=== PATIENT | female | born 1945 | race Hispanic/Latino ===

== ENCOUNTER → 2018-12-06 | Day surgery (SDC) | payer MEDICARE, OTHER ==
[2018-11-14 11:12] LABS: BASOPHILS % 0.2 % (0.0-1.0); EOSINOPHILS # (AUTO) 0.1 (0.0-0.4); EOSINOPHILS % 1.6 % (0.0-6.0); HEMATOCRIT 36.9 % (34.2-44.1); HEMOGLOBIN 12.9 g/dL (12.0-16.0); LYMPHOCYTES % 31.4 % (18.0-39.1); MEAN CORPUSCULAR HEMOGLOBIN 31.1 pg (28-32); MEAN CORPUSCULAR VOLUME 88.9 fL (81-99); MONOCYTES # (AUTO) 0.5 (0.2-0.8); MONOCYTES % 7.1 % (4.4-11.3); NEUTROPHILS # (AUTO) 3.7 (2.1-6.9); NEUTROPHILS % 59.4 % (38.7-80.0); PLATELET COUNT 247 x10e3/uL (140-360); RED BLOOD COUNT 4.15 x10e6/uL (3.6-5.1); RED CELL DISTRIBUTION WIDTH 12.6 % (11.7-14.4)
[~2018-12-06] MED LIST: ATORVASTATIN CA20 MG PO; DILTIAZEM 24HR180 MG PO; FENTANYL CITRATE/PF 100MCG/2 ML INJ ONE; HYOSCYAMINE SULFATE 0.5 MG/ML INJ ONE; LIDOCAINE HCL 2% LOCAL INJ 5 ML SDV VIAL INJ ONE; LISINOPRIL-HCT1 EAC1 PO; METFORMIN HCL500 MG PO; MIDAZOLAM HCL 2 MG/2 ML VIAL ONE; PANTOPRAZOLE SO40 MG PO; PROPOFOL IV EMULSION 10 MG/ML 50 ML VIAL ONE
--- OUTSIDE RECORDS SUMMARY | 2018-12-06 13:54 | XMS REPORT ---
Author Author [facility] Organization [facility] Address Unknown Phone Unavailable Care Team Providers Care Home Health Provider Name Role Phone Unavailable Unavailable Payers Payer Name Policy Type Policy Number Effective Date Expiration Date Problems This patient has no known problems. Allergies, Adverse Reactions, Alerts Allergy Name Allergy Type Status Severity Reaction(s) Onset Date Inactive Date Treating Clinician Comments No Known Allergies DA Active U 2016-10-18 00:00:00 Medications This patient has no known medications. Results Test Description Test Time Test Comments Text Results Atomic Results Result Comments GLUBED 2018-06-22 17:27:00 GLUBED (test code=GLUBED) 159 mg/dL 74-106 Performed by certified shovel log loader operator at [facility] [id number] 13:51:00* Test Item Value Reference Range Comments TROPONIN-I (test code=TROPI) <0.015 ng/mL 0-0.045 COMMENTS TO FISH HOUSE WORKER: COLLECT 3 HOURS AFTER PREVIOUS [id number] 13:11:00* Test Item Value Reference Range Comments GLUBED (test code=GLUBED) 125 mg/dL 74-106 Performed by certified shovel log loader operator at [facility] [id number] 11:17:00* Test Item Value Reference Range Comments TROPONIN-I (test code=TROPI) <0.015 ng/mL 0-0.045 COMMENTS TO FISH HOUSE WORKER: COLLECT 3 HOURS AFTER PREVIOUS [id number] 11:05:00* Test Item Value Reference Range Comments GLUBED (test code=GLUBED) 154 mg/dL 74-106 Performed by certified shovel log loader operator at [facility] B-TYPE NATRIURETIC [id number] 07:23:00* Test Item Value Reference Range Comments B-TYPE NATRIURETIC PEPTIDE (test code=BNP) 8.50 pgram/mL 0-100 [id number] 06:31:00* Test Item Value Reference Range Comments GLYCOSYLATED HEMOGLOBIN (HA1C) (test code=GLYHGB) 8.1 % HbA1 4.8-6.0 ESTIMATED AVERAGE GLUCOSE (test code=EAG) 186 MG/DL BASIC METABOLIC [id number] 05:40:00* Test Item Value Reference Range Comments SODIUM (test code=NA) 136 mmol/L 136-145 POTASSIUM (test code=K) 3.3 mmol/L 3.5-5.1 CHLORIDE (test code=CL) 98.0 mmol/L 98-107 CARBON DIOXIDE (test code=CO2) 28.0 mmol/L 21-32 ANION GAP (test code=GAP) 13.3 10-20 GLUCOSE (test code=GLU) 156 mg/dL 74-106 BLOOD UREA NITROGEN (test code=BUN) 21 mg/dL 7-18 GLOMERULAR FILTRATION RATE (test code=GFR) 55 mL/min >=60 Estimated GFR by using Modified MDRD formula.Chronic kidney disease is defined as either kidney damageor GFR <60 mL/min/1.73 m2 for >3 months. CREATININE (test code=CREAT) 1.00 mg/dL 0.55-1.02 Note change in reference range due to change in reagent. BUN/CREATININE RATIO (test code=BUN/CREA) 21.3 10-20 CALCIUM (test code=CA) 9.2 mg/dL 8.5-10.1 HEPATIC FUNCTION [id number] 05:40:00* Test Item Value Reference Range Comments TOTAL PROTEIN (test code=PROT) 8.2 gram/dL 6.4-8.2 ALBUMIN (test code=ALB) 3.9 g/dL 3.4-5.0 GLOBULIN (test code=GLOB) 4.3 gram/dL 2.7-4.2 ALBUMIN/GLOBULIN RATIO (test code=A/G) 0.9 0.75-1.50 BILIRUBIN TOTAL (test code=BILT) 1.00 mg/dL 0.0-1.0 BILIRUBIN DIRECT (test code=BILD) 0.23 mg/dL 0.0-0.20 SGOT/AST (test code=AST) 27 IUnit/L 15-37 SGPT/ALT (test code=ALT) 49 IUnit/L 12-78 ALKALINE PHOSPHATASE TOTAL (test code=ALKP) 113 IUnit/L 45-117 Note change in reference range due to change in reagent. [id number] 05:40:00* Test Item Value Reference Range Comments LIPASE (test code=LIP) 424 U/L 73.0-393.0 [id number] 05:40:00* Test Item Value Reference Range Comments TROPONIN-I (test code=TROPI) <0.015 ng/mL 0-0.045 BASIC METABOLIC [id number] 05:32:00* Test Item Value Reference Range Comments SODIUM (test code=NA) 136 mmol/L 136-145 POTASSIUM (test code=K) 3.3 mmol/L 3.5-5.1 CHLORIDE (test code=CL) 98.0 mmol/L 98-107 CARBON DIOXIDE (test code=CO2) mmol/L 21-32 ANION GAP (test code=GAP) 10-20 GLUCOSE (test code=GLU) mg/dL 74-106 BLOOD UREA NITROGEN (test code=BUN) mg/dL 7-18 GLOMERULAR FILTRATION RATE (test code=GFR) mL/min >=60 CREATININE (test code=CREAT) mg/dL 0.55-1.02 BUN/CREATININE RATIO (test code=BUN/CREA) 10-20 CALCIUM (test code=CA) mg/dL 8.5-10.1 HEPATIC FUNCTION [id number] 05:32:00* Test Item Value Reference Range Comments TOTAL PROTEIN (test code=PROT) gram/dL 6.4-8.2 ALBUMIN (test code=ALB) g/dL 3.4-5.0 GLOBULIN (test code=GLOB) gram/dL 2.7-4.2 ALBUMIN/GLOBULIN RATIO (test code=A/G) 0.75-1.50 BILIRUBIN TOTAL (test code=BILT) mg/dL 0.0-1.0 BILIRUBIN DIRECT (test code=BILD) mg/dL 0.0-0.20 SGOT/AST (test code=AST) IUnit/L 15-37 SGPT/ALT (test code=ALT) IUnit/L 12-78 ALKALINE PHOSPHATASE TOTAL (test code=ALKP) IUnit/L 45-117 [id number] 05:32:00* Test Item Value Reference Range Comments LIPASE (test code=LIP) U/L 73.0-393.0 [id number] 05:32:00* Test Item Value Reference Range Comments TROPONIN-I (test code=TROPI) ng/mL 0-0.045 CBC W/O [id number] 05:24:00* Test Item Value Reference Range Comments WHITE BLOOD CELL (test code=WBC) 8.8 K/mm3 4.5-12.5 RED BLOOD CELL (test code=RBC) 4.94 mill/mm3 3.7-5.2 HEMOGLOBIN (test code=HGB) 14.8 gram/dL 11.5-15.5 HEMATOCRIT (test code=HCT) 44.3 % 36.0-46.0 MEAN CELL VOLUME (test code=MCV) 89.7 fL 80-98 MEAN CELL HGB (test code=MCH) 30.0 picogram 27.0-33.0 MEAN CELL HGB CONCETRATION (test code=MCHC) 33.4 gram/dL 33.0-36.0 RED CELL DISTRIBUTION WIDTH (test code=RDW) 12.1 % 11.6-16.2 PLATELET COUNT (test code=PLT) 203 K/mm3 150-450 MEAN PLATELET VOLUME (test code=MPV) 10.4 fL 6.7-11.0 TROPONIN I [id number] 05:21:00* Test Item Value Reference Range Comments TROPONIN I RAPID (test code=TROPIRAP) 0.00 ng/mL <0.08 Please Note New Reference Range 0.00-0.079 ng/mL - Negative>or=0.08 ng/mL - Positive The use of serial sampling and testing protocol is arecommended practice.An elevated troponin level alone is often not sufficient fordiagnosis of myocardial infarction. Troponin results obtained by different assays may vary.Evaluation of the extent of myocardial damage based onincrease of troponin would be valid only if similarmethodology is used. - XR CHEST 1 [id number] 05:20:00 FAX: Jignesh Allred Widener: St: PRE Name: CHASE VINES [facility] : [birth year] Age/S: 72/F [address] [facility] Unit #: [id number] Loc: [place] [address] Phys: Jignesh Allred MD Acct: [id number] Dis Date: Status: PRE ER PHONE #: [phone] Exam Date: 06/22/2018514 FAX #: [phone] Reason: CHEST PAIN EXAMS: CPT CODE: [id number] XR CHEST 1 V [id number] EXAM: - XR CHEST 1 V HISTORY: Chest pain. COMPARISON: June 28, 2015. FINDINGS: Single AP view of the chest is provided. Heart si ze and vascularity are within normal limits. The lungs are clear of focal consolidation. No effusion, pneumothorax, or acute osseous abnormality. There is no significant change compared to previous exam. IMPRESSION: No radiographic evidence of acute cardiopulmonary process. at 0527 Reported and signed by: Benjie Aranda MD CC: Jignesh Allred MD Technologist: Dawna Chen Trnscrd Date/Time/By: 06/2018 (0720) : By: [email or web address] Orig Print D/T: S: 06/22/2018 (0826) PAGE 1 Signed Report SCR MAMM BILATERAL EDITH CAD [id number] 08:33:42 - SCR MAMM BILATERAL EDITH CAD DIGITALBILATERAL DIGITAL SCREENING MAMMOGRAM 3D/2D WITH CAD: 06/06/2018CLINICAL: Asymptomatic. Digital breast tomosynthesis was performed in addition to routine CC and MLO views. Current mammographic images were evaluated by either a Protonet M-Vu or a [employer] ImageChecker CAD (computer aided detection system). No prior exams were available for comparison. The tissue of both breasts is predominantly fatty. There are benign calcifications in both breasts. There also is a benign intramammary node in the left breast. No aldana spicious mass, architectural distortion, malignant type calcification, or lymph node abnormality detected. IMPRESSION: BENIGNThere is no mammographic evidence of malignancy. Resume annual screening mammography in one year. Dipesh sosa/scarlet:06/06/2018 08:33:42 Manager Radio: Dinah ZABALA, [facility]-FWletter sent: BIRADS 1-2 Normal Mammogram BI-RADS: 2 Benign
[2018-12-06 18:15] VITALS: BP 144/91
--- NOTE | 2018-12-06 18:53 | Operative Report ---
DATE OF PROCEDURE: 12/06/2018 SURGEON: Morro Estrada MD PROCEDURE: Colonoscopy and polypectomy. INDICATION FOR COLONOSCOPY: Colorectal cancer screening, lower abdominal pain. MEDICATIONS: The patient was done under MAC, please see anesthesiologist's note. PROCEDURE IN DETAIL: With the patient in left lateral decubitus position, the flexible fiberoptic Olympus colonoscope was inserted into the rectum with ease and advanced to the distal sigmoid colon. The scope could not be advanced any further due to sharp angulation and fixation of the distal sigmoid colon. The scope was subsequently withdrawn and the pediatric colonoscope was inserted and was advanced all the way to the cecum. The scope was then withdrawn slowly and the mucosa overlying the cecum appeared to be within normal limits. There were some scattered diverticular disease noted, but it was more prominent in the sigmoid and distal descending colon. One polyp was snared from the ascending colon. The rest of the ascending, transverse, descending, and sigmoid colon grossly other than for diverticulosis appeared to be within normal limits. The distal sigmoid was suboptimally visualized due to the sharp angulation of the part of the colon. The rectum grossly appeared to be within normal limits. The scope was then retroflexed into the distal rectum and small internal hemorrhoids were noted, none of which was actively bleeding. The scope was then straightened out, it was subsequently withdrawn. The patient tolerated the procedure well. IMPRESSION: 1. Sharply angulated distal sigmoid colon negotiated only with the pediatric colonoscope. 2. Ascending colon polyp, snared. 3. Diverticulosis. 4. Internal hemorrhoids, none actively bleeding. PLAN: Follow up histology. Initiate high-fiber, low-fat diet. Initiate high-fiber supplement. Start Bentyl 10 mg one p.o. t.i.d. The patient might benefit from a followup colonoscopy in 5 years. Morro Estrada MD [facility]/MODL /[id number] cc: Jax Boswell MD
== END | disposition home or self-care (01) ==
LOC: OR 13:52
PROVIDERS: ATTEND Internal Medicine Gastroenterology
DX: Z12.11 Encounter for screening for malignant neoplasm of colon (principal); D12.2 Benign neoplasm of ascending colon; K57.30 Diverticulosis of large intestine without perforation or abscess without bleeding; K59.00 Constipation, unspecified; R10.9 Unspecified abdominal pain; E11.9 Type 2 diabetes mellitus without complications; I10 Essential (primary) hypertension; K63.5 Polyp of colon; K64.8 Other hemorrhoids; Z01.810 Encounter for preprocedural cardiovascular examination; Z01.812 Encounter for preprocedural laboratory examination
CPT/HCPCS: 36415; 45385; 82948; 85025; 88305; 93005; J1980; J2001; J2250; J3010

== ENCOUNTER → 2021-06-30 | Outpatient (CLI) | payer MEDICARE, OTHER ==
[~2021-06-30] MED LIST changes: -FENTANYL CITRATE/PF 100MCG/2 ML INJ ONE; -HYOSCYAMINE SULFATE 0.5 MG/ML INJ ONE; -LIDOCAINE HCL 2% LOCAL INJ 5 ML SDV VIAL INJ ONE; -MIDAZOLAM HCL 2 MG/2 ML VIAL ONE; -PROPOFOL IV EMULSION 10 MG/ML 50 ML VIAL ONE
== END ==
LOC: SLEEP 19:54
PROVIDERS: ATTEND Family Medicine
DX: G47.33 Obstructive sleep apnea (adult) (pediatric) (principal)
CPT/HCPCS: 95810

== ENCOUNTER → 2022-07-10 | Day surgery (SDC) | payer MEDICARE, OTHER ==
[2022-07-03 10:20] LABS: BASOPHILS % 0.4 % (0.0-1.0); EOSINOPHILS # (AUTO) 0.2 (0.0-0.4); EOSINOPHILS % 2.3 % (0.0-6.0); HEMATOCRIT 39.4 % (34.2-44.1); HEMOGLOBIN 13.2 g/dL (12.0-16.0); LYMPHOCYTES # (AUTO) 2.1 (1.0-3.2); LYMPHOCYTES % 30.7 % (18.0-39.1); MEAN CORPUSCULAR HEMOGLOBIN 29.8 pg (28-32); MEAN CORPUSCULAR HGB CONC 33.5 g/dL (31-35); MEAN CORPUSCULAR VOLUME 88.9 fL (81-99); MONOCYTES # (AUTO) 0.4 (0.2-0.8); MONOCYTES % 5.8 % (4.4-11.3); NEUTROPHILS # (AUTO) 4.1 (2.1-6.9); NEUTROPHILS % 60.4 % (38.7-80.0); PLATELET COUNT 251 x10e3/uL (140-360); RED BLOOD COUNT 4.43 x10e6/uL (3.6-5.1); RED CELL DISTRIBUTION WIDTH 13.1 % (11.7-14.4)
[~2022-07-10] MED LIST changes: +FENTANYL CITRATE/PF 100MCG/2 ML INJ ONE; +GLUCAGON FOR INJ 1 MG VIAL ONE; +HAIR SKIN NAIL1 EACH PO; +HYOSCYAMINE SULFATE 0.5 MG/ML INJ ONE; +LIDOCAINE HCL 2% LOCAL INJ 5 ML SDV VIAL INJ ONE; +PROPOFOL IV EMULSION 10 MG/ML 20 ML VIAL ONE
[2022-07-10 16:04] VITALS: BP 126/70
== END | disposition home or self-care (01) ==
LOC: OR 10:25
PROVIDERS: ATTEND Internal Medicine Gastroenterology
DX: K21.9 Gastro-esophageal reflux disease without esophagitis (principal); D12.2 Benign neoplasm of ascending colon; K29.50 Unspecified chronic gastritis without bleeding; K31.A12 Gastric intestinal metaplasia without dysplasia, involving the body (corpus); K20.90 Esophagitis, unspecified without bleeding; K57.30 Diverticulosis of large intestine without perforation or abscess without bleeding; K64.8 Other hemorrhoids; G47.33 Obstructive sleep apnea (adult) (pediatric); E11.9 Type 2 diabetes mellitus without complications; I10 Essential (primary) hypertension; E78.6 Lipoprotein deficiency; Z91.041 Radiographic dye allergy status; Z01.810 Encounter for preprocedural cardiovascular examination; Z01.812 Encounter for preprocedural laboratory examination; Z79.899 Other long term (current) drug therapy
CPT/HCPCS: 36415; 43239; 45385; 85025; 88305; 88342; 93005; C9113; J1610; J1980; J2001; J2704; J3010; 45378; 88304; 88312